=== PATIENT | female | born 1985 | race Asian ===

== ENCOUNTER 2018-11-09 10:36 | Emergency (ER) | payer OTHER ==
[~2018-11-09] VITALS: Ht 162.6 cm; Wt 133.4 kg
[2018-11-09 10:49] VITALS: BP 150/97
--- NOTE | 2018-11-09 10:54 | NUR ---
TRIAGED TO LOBBYTRACIE
--- NOTE | 2018-11-09 12:05 | NUR ---
PT BIB SELF C/O GENERAL WEAKNESS, STATES SHE FEELS LIKE SHE IS GOING TO PASS OUT. REPORTS NAUSEA. PT AAOX4, COOPERATIVE, GAIT STEADY, SPEECH CLEAR, FACIAL SYMMETRY INTACT. VSS. ER TO SEE PT. HX: ANEMIA RX: IRON
[2018-11-09] MEDS ORDERED: NACL 0.9% 1,000 ML IV SCH (12:57)
[2018-11-09 13:27] LABS: BASOPHILS # (AUTO) 0.1 K/uL (0.00-0.22); BASOPHILS % (AUTO) 0.5 % (0.0-2.0); EOSINOPHILS # (AUTO) 0.4 K/uL (0-0.4); EOSINOPHILS % (AUTO) 2.2 % (0.0-4.0); HEMATOCRIT 26.6 % (36-48); HEMOGLOBIN 7.1 g/dL (12.0-16.0); LYMPHOCYTES # (AUTO) 3.7 K/uL (2.5-16.5); LYMPHOCYTES % (AUTO) 22.2 % (20.5-51.1); MEAN CORPUSCULAR HEMOGLOBIN 14 pg (27-31); MEAN CORPUSCULAR HGB CONC 27 g/dL (33-37); MEAN CORPUSCULAR VOLUME 51.7 fL (80-94); MONOCYTES # (AUTO) 0.8 K/uL (0.8-1.0); MONOCYTES % (AUTO) 4.6 % (1.7-9.3); NEUTROPHILS # (AUTO) 11.7 K/uL (1.8-7.7); NEUTROPHILS % (AUTO) 70.5 % (42.2-75.2); PLATELET COUNT (AUTO) 638 K/uL (140-450); RED BLOOD CELL COUNT(AUTO) 5.15 MIL/uL (4.20-5.40); RED CELL DISTRIBUTION WIDTH 21.6 % (11.6-13.7); WHITE BLOOD COUNT (AUTO) 16.6 K/uL (4.8-10.8)
[2018-11-09 13:38] LABS: ANION GAP 11.6 (8-16); CARBON DIOXIDE 26.4 mmol/L (21-32); CREATININE 0.7 mg/dL (0.6-1.3)
[2018-11-09 13:45] LABS: ALBUMIN 2.9 g/dL (3.4-5.0); TOTAL BILIRUBIN 0.4 mg/dL (0.0-1.0)
--- NOTE | 2018-11-09 13:54 | NUR ---
ESTABLISHED IV IN RT AC, BUT IV IS STICKING OUT, INFORMED CHARGE NURSE MICHAEL.
--- NOTE | 2018-11-09 14:30 | NUR ---
CHARGE NURSE MICHAEL UNABLE TO GET AN IV FOR BLOOD TRANSFUSION. ER INFORMED
[2018-11-09] MEDS ORDERED: FERR-15 PO (14:44)
--- NOTE | 2018-11-09 16:01 | NUR ---
ASKED ER MD FOR CENTRAL LINE BECAUSE WE ARE UNABLE TO IV, HE STATED THAT HE WOULD ADMIT PT TO FLOOR AND HAVE CENTRAL LINE PLACED THERE
[2018-11-09] MEDS ORDERED: ONDANSETRON 4 MG/2 ML VIAL IVP PRN (16:15)
[2018-11-09] MEDS ORDERED: diphenhydrAMINE 50 MG/ML VIAL IVP PRN (16:15)
[2018-11-09] MEDS ORDERED: ACETAMINOPHEN 325 MG TAB PO PRN (16:15)
--- NOTE | 2018-11-09 16:17 | NUR ---
DR. MORA STATED PT COULD OBTAIN PICC LINE ON FLOOR FOR BLOOD TRANSFUSION
[2018-11-09 16:59] VITALS: BP 125/58
--- NOTE | 2018-11-09 16:59 | NUR ---
Patient discharged with v/s stable. Written and verbal after care instructions given and explained. Patient alert, oriented and verbalized understanding of instructions. Ambulatory with steady gait. All questions addressed prior to discharge. ID band removed. Patient advised to follow up with PMD. Rx of HEMATOGEN given. Patient educated on indication of medication including possible reaction and side effects. Opportunity to ask questions provided and answered.
--- NOTE | 2018-11-11 12:13 | NUR ---
Late entry. Confirmed with RN that 1000 ml 0.9 NS IV bolus completed at 1500
== END 2018-11-09 16:59 | disposition home or self-care (01) ==
LOC: MED 10:36
DX: R55 Syncope and collapse (principal); D64.9 Anemia, unspecified; Z79.899 Other long term (current) drug therapy
CPT/HCPCS: 36415; 80053; 81002; 81025; 82948; 83540; 85025; 86886; 86900; 86901; 86920; 93005; 96360; 99283; J7030

== ENCOUNTER 2018-11-12 04:02 | Emergency (ER) | payer OTHER ==
[~2018-11-12] VITALS: Ht 162.6 cm; Wt 132.2 kg
[~2018-11-12 04:02] MED LIST: FERR-15 PO
[2018-11-12 04:13] VITALS: BP 145/72
--- NOTE | 2018-11-12 04:22 | NUR ---
PT TAKEN TO BED 4
--- NOTE | 2018-11-12 04:32 | NUR ---
EKG PERFORMED AT BEDSIDE
[2018-11-12 04:54] LABS: HEMATOCRIT 28.9 % (36-48); HEMOGLOBIN 7.8 g/dL (12.0-16.0); MEAN CORPUSCULAR HEMOGLOBIN 15 pg (27-31); MEAN CORPUSCULAR HGB CONC 27 g/dL (33-37); MEAN CORPUSCULAR VOLUME 53.4 fL (80-94); PLATELET COUNT (AUTO) 698 K/uL (140-450); RED BLOOD CELL COUNT(AUTO) 5.42 MIL/uL (4.20-5.40); RED CELL DISTRIBUTION WIDTH 22.1 % (11.6-13.7); WHITE BLOOD COUNT (AUTO) 18.1 K/uL (4.8-10.8)
--- NOTE | 2018-11-12 04:55 | NUR ---
PT BIB SELF FOR DIZZINESS AND NEAR SYNCOPE. PT STATES SHE WAS UNABLE TO SLEEP AND THEN FELT LIKE SHE WAS GOING TO PASS OUT. PT DENIES LOC. PT STATES SHE WAS SEEN IN ER 2 DAYS AGO FOR SAME S/S AND HAS PADMA FOR PCP ON FRIDAY. PT IS AWAKE, ALERT AND ORIENTED.
[2018-11-12 05:02] LABS: POTASSIUM 3.9 mmol/L (3.5-5.1)
[2018-11-12 05:03] LABS: ANION GAP 6.8 (8-16); CARBON DIOXIDE 27.1 mmol/L (21-32); CREATININE 0.8 mg/dL (0.6-1.3)
[2018-11-12] MEDS ORDERED: NACL 0.9% 2,000 ML IV ONE (05:05)
--- NOTE | 2018-11-12 05:08 | NUR ---
Dr. Messina evaluating patient at bedside.
[2018-11-12 05:10] LABS: APPEARANCE,URINE CLEAR (CLEAR); BILIRUBIN,URINE NEGATIVE (NEGATIVE); BLOOD, URINE NEGATIVE (NEGATIVE); LEUKOCYTE ESTERASE ,URINE NEGATIVE (NEGATIVE); NITRITE, URINE NEGATIVE (NEGATIVE); UGLUCOSE NEGATIVE (NEGATIVE)
[2018-11-12 05:11] LABS: COLOR,URINE PALE YELLOW (YELLOW)
[2018-11-12 05:17] LABS: ALBUMIN 3.1 g/dL (3.4-5.0); TOTAL BILIRUBIN 0.5 mg/dL (0.0-1.0)
[2018-11-12 05:33] LABS: BASOPHILS % (MANUAL) 0 % (0-2); EOSINOPHILS % (MANUAL) 4 % (0-4); LYMPHOCYTES % (MANUAL) 26 % (20-46); MONOCYTES % (MANUAL) 5 % (5-12)
[2018-11-12] MEDS ORDERED: PIPERACILLIN/TAZOBACTAM 3.375 GM in DEXTROSE 5% 50 ML IV ONE (05:50)
[2018-11-12] MEDS ORDERED: PIPERACILLIN/TAZOBACTAM 3.375 GM VIAL IV ONE (06:12)
--- NOTE | 2018-11-12 07:25 | NUR ---
Received report from RAJI Tolentino.
--- NOTE | 2018-11-12 08:28 | NUR ---
AAOX4.DENIES DIZZINESS AT THIS TIME. PATIENT STATES PAIN OF 0/10 AT THIS TIME; VSS; PATIENT POSITIONED FOR COMFORT; HOB ELEVATED; BEDRAILS UP X1; BED DOWN.
--- NOTE | 2018-11-12 09:00 | NUR ---
Patient discharged with v/s stable. Written and verbal after care instructions given and explained. Patient verbalized understanding. Ambulatory with steady gait. All questions addressed prior to discharge. Advised to follow up with PMD and [employer].
[2018-11-12 09:01] VITALS: BP 122/72
== END 2018-11-12 09:00 | disposition home or self-care (01) ==
LOC: MED 04:02
DX: D64.9 Anemia, unspecified (principal); D72.829 Elevated white blood cell count, unspecified; E87.1 Hypo-osmolality and hyponatremia; Z79.899 Other long term (current) drug therapy
CPT/HCPCS: 36415; 71045; 80053; 81003; 81025; 83605; 84484; 85025; 87040; 87086; 93005; 96361; 96365; 99284; J2543; J7030; Q0092